=== PATIENT | female | born 1980 | race Asian ===

== ENCOUNTER → 2024-01-18 12:26 | Outpatient (CLI) | payer OTHER, SELFPAY ==
--- NOTE | 2024-01-18 12:27 | DI.US.S_ITS ---
PROCEDURE: US PERIPH VENOUS LOW EXTREM BI INDICATIONS: Localized edema TECHNIQUE: Real-time imaging, as well as color and pulse Doppler interrogation, were performed of the deep veins of both legs from the inguinal ligament to the popliteal fossa, with documentation of the visualized calf veins. COMPARISON: None. FINDINGS: Right: The common femoral, femoral, popliteal, and the visualized calf veins are normally compressible, and free of intraluminal thrombus. Color and pulse Doppler demonstrate normal phasic intravascular flow. There is normal augmentation response to distal compression maneuver. Left: The common femoral, femoral, popliteal, and the visualized calf veins are normally compressible, and free of intraluminal thrombus. Color and pulse Doppler demonstrate normal phasic intravascular flow. There is normal augmentation response to distal compression maneuver. IMPRESSION: No findings of deep venous thrombosis in either lower extremity. Dictated by: Blake Mcpherson M.D. on 01/18/2024 at 12:41 Approved by: Blake Mcpherson M.D. on 01/18/2024 at 12:41
== END ==
DX: R60.0 Localized edema (principal)
CPT/HCPCS: 93970

== ENCOUNTER 2024-04-13 09:45 | Outpatient (RCR) | payer OTHER, SELFPAY ==
--- NOTE | 2024-03-30 13:14 | PT.OIE ---
Current Diagnoses Segmental and somatic dysfunction of pelvic region (03/30/24) Pelvic muscle wasting (03/30/24) Unspecified urinary incontinence (03/30/24) Nocturia (03/30/24) Visit Care Team Role Provider Type Amarjit POOL Provider Primary Care Provider Non-Staff Specialty: Medical Address: Phone: Email: Majo Carter DO Attending Provider Non-Staff Referring Provider Specialty: Family Practice Address: [address] [place] [address], [id number] Email: Physical Therapy Initial Evaluation PT-OP-A Visit Information Start: 03/30/24 08:43 Freq: Status: Active Protocol: Document 03/30/24 09:06 [facility] (Rec: 03/30/24 09:32 [facility] [id number]) Out-Patient Physical Therapy Visit Information Visit Information Visit Type Initial Evaluation Visit Start Time 09:06 Visit Stop Time 09:45 Visit Number 1 Evaluation Information Evaluation Date 03/30/24 PT-OP-B Current Condition Start: 03/30/24 08:43 Freq: Status: Active Protocol: Document 03/30/24 09:06 [facility] (Rec: 03/30/24 09:32 [facility] [id number]) Current Condition History of Current Condition Onset Date a couple of years Current Complaints Kishore reports pelvic weakness and urianry incontinence History of Current Condition pt notes she feels leaking with laughing and coughing and with lifting, and jumping. She wakes up at night up to 4 times per night. She can delay the urge to void 7-10 min during the day. Kishore drinks primary water and low caffiene tea during the day. History of low back pain that started 2-3 years ago. Its low in her sacrum and she has had injections. 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 Treatment Goals Patient/Caregiver Goals Pt's goals include improving strength of the pelvic floor and reducing complaints of urinary incontinence PT-OP-C Subjective Start: 03/30/24 08:43 Freq: Status: Active Protocol: Document 03/30/24 12:41 [facility] (Rec: 03/30/24 12:42 [facility] [id number]) Patient Questionnaires Pelvic Pain and Urgency/Frequency Patient Symptom Scale Pelvic Pain Score 13 PT-OP-I Pelvic Floor Start: 03/30/24 08:43 Freq: Status: Active Protocol: Document 03/30/24 09:35 [facility] (Rec: 03/30/24 09:50 [facility] [id number]) Pelvic Floor Assessment Urine Pelvic Floor Surgery No Nocturia 3-4 Pelvic Clock Pelvic Clock 12-3 Guarding,Tightness Pelvic Clock 3-6 Guarding,Tightness Pelvic Clock 6-9 Guarding,Tightness Pelvic Clock 9-12 Guarding,Tightness Pelvic Clock Other guarding and tightness in the pelvic floor with decreased ability to contract the musculature Contraction Ability Voluntary Contraction Weak Voluntary Relaxation Weak Manual Muscle Testing Left 1 Manual Muscle Testing Right 1 Manual Muscle Testing Anterior 1 Manual Muscle Testing Posterior 1 Muscle Endurance (Seconds) 2 Comments Pelvic Floor Comments Kishore presents with guarding of the pelvic floor with decreased ability to faciliate a pelvic floor contraction and limited endurance of pelvic floor contraction. PT-OP-Q Treatments Start: 03/30/24 08:43 Freq: Status: Active Protocol: Document 03/30/24 09:32 [facility] (Rec: 03/30/24 09:33 [facility] [id number]) Therapeutic Exercises Supine Exercises pelvic floor quick flicks Reps/Minutes 10 reps holding 2 sec and resting 2 sec pelvic floor long holds Reps/Minutes 10 reps holding 10 seconds and rest 10 seconds p flexor stretch Supine Exercise Name hip flexor stretch Side bilateral Reps/Minutes hold 1-2 minutes Comments right sided tightness piriformis stretch Side bilateral Reps/Minutes hold 1-2 min Comments right sided tightness PT-OP-T Assessment and Plan Start: 03/30/24 08:43 Freq: Status: Active Protocol: Document 03/30/24 12:45 [facility] (Rec: 03/30/24 13:07 [facility] [id number]) Physical Therapy Assessment Rehab Potential Rehabilitation Potential Excellent Evaluation Complexity Number of Personal Factors/Comorbidities 0 Number of Body Systems Impaired 1-2 Clinical Presentation at Evaluation Stable Impairments Impairments Activity Tolerance,Soft Tissue Mobility,Strength,Tone Other Impairments urinary stress and urge incontinence symptoms Goals 3 Impairment Pelvic floor weakness and decreasead endurance Short Term Goal (STG) Kishore is able to improve endurance of her pelvic floor to 10 second hold time in supine STG Duration 5 weeks Charge Operator Goal (LTG) Kishore is able to sustain a pelvic floor contraction in standing x 5 seconds LTG Duration 12 weeks 2 Impairment Pelvic floor guarding and tension throughout all khalil of the levator ani Short Term Goal (STG) Kishore is given stretches to begin working towards full relaxation of the pelvic floor musculature at rest and for improved ability to void STG Duration 4 weeks Charge Operator Goal (LTG) Kishore is able to relax her pelvic floor to baseline with EMG biofeedback demonstrating improved ability to relax her pelvic floor at rest. 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 She has no prior hisotyr of vaginal delivery or any abdominal surgery. She does have a history of low back and sacral pain. Leakage is occuring approximately 2 times per week and Kishore will note leaking through her underwear. Exercise, lifting, laughing, and jumping increases her symptoms. Kishore also reports symptoms of nocturia waking 3- 4 times per night to void. Kishore reports she often strains to fully pass urine and bowel movements and at times will still feel her bladder is full after urinating. She has a slow and hesitant urinary stream. With pelvic floor exam today Kishore presents with pelvic floor guarding and tension for all khalil of the levator ani. She is unable to relax with verbal cues. Pelvic floor contraction is very minimal with a 1/5 trace contraction MMT for all khalil of the pelvic floor. Endurance is poor with 1-2 seconds only. Kishore also presents with hip tightness on the right side both in the piriformis and hip flexors which can contribute to pelvic floor tension. I explained to Kishore today how tension in the pelvic floor con contribute to not being able to fully empty the bladder. Kishore is a good candidate for PT working towards both relaxed awareness of the pelvic floor at rest as well as the ability to contract the pelvic floor and sustain a pelvic floor contraction. Physical Therapy Plan Frequency and Duration Frequency of Treatment 1x/Week Duration of treatment (weeks) 12 Plan of Care Start Date 03/30/24 Plan of Care End Date 06/22/24 Therapeutic Interventions Therapeutic Interventions Home Exercise Program, Neuromuscular Re-education, Patient/Caregiver Education, Self-Care/Home Management, Therapeutic Exercises Modalities Biofeedback Next Visit Focus/Plan Next Note Type Treatment Note Next Visit Plan begin stretches for the pelvic floor and initiate EMG biofeedback for pelvic floor strength and endurance training
--- NOTE | 2024-04-06 12:47 | PT.OTN ---
Current Diagnoses Segmental and somatic dysfunction of pelvic region (04/06/24) Pelvic muscle wasting (04/06/24) Unspecified urinary incontinence (04/06/24) Nocturia (04/06/24) Physical Therapy Treatment Note PT-OP-A Visit Information Start: 03/30/24 08:43 Freq: Status: Active Protocol: Document 04/06/24 09:55 [facility] (Rec: 04/06/24 11:31 [facility] [id number]) Out-Patient Physical Therapy Visit Information Visit Information Visit Type Treatment Note Visit Start Time 09:50 Visit Stop Time 10:30 Visit Number 2 PT-OP-B Current Condition Start: 03/30/24 08:43 Freq: Status: Active Protocol: Document 03/30/24 09:06 [facility] (Rec: 03/30/24 09:32 [facility] [id number]) Current Condition History of Current Condition Onset Date a couple of years Current Complaints Kishore reports pelvic weakness and urianry incontinence History of Current Condition pt notes she feels leaking with laughing and coughing and with lifting, and jumping. She wakes up at night up to 4 times per night. She can delay the urge to void 7-10 min during the day. Kishore drinks primary water and low caffiene tea during the day. History of low back pain that started 2-3 years ago. Its low in her sacrum and she has had injections. 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 Treatment Goals Patient/Caregiver Goals Pt's goals include improving strength of the pelvic floor and reducing complaints of urinary incontinence PT-OP-C Subjective Start: 03/30/24 08:43 Freq: Status: Active Protocol: Document 04/06/24 09:55 [facility] (Rec: 04/06/24 11:31 [facility] [id number]) OP-PT Subjective Patient Comments Patient Comments She is trying to relax to void instead of pushing PT-OP-I Pelvic Floor Start: 03/30/24 08:43 Freq: Status: Active Protocol: Document 03/30/24 09:35 [facility] (Rec: 03/30/24 09:50 [facility] [id number]) Pelvic Floor Assessment Urine Pelvic Floor Surgery No Nocturia 3-4 Pelvic Clock Pelvic Clock 12-3 Guarding,Tightness Pelvic Clock 3-6 Guarding,Tightness Pelvic Clock 6-9 Guarding,Tightness Pelvic Clock 9-12 Guarding,Tightness Pelvic Clock Other guarding and tightness in the pelvic floor with decreased ability to contract the musculature Contraction Ability Voluntary Contraction Weak Voluntary Relaxation Weak Manual Muscle Testing Left 1 Manual Muscle Testing Right 1 Manual Muscle Testing Anterior 1 Manual Muscle Testing Posterior 1 Muscle Endurance (Seconds) 2 Comments Pelvic Floor Comments Kishore presents with guarding of the pelvic floor with decreased ability to faciliate a pelvic floor contraction and limited endurance of pelvic floor contraction. PT-OP-Q Treatments Start: 03/30/24 08:43 Freq: Status: Active Protocol: Document 04/06/24 09:55 [facility] (Rec: 04/06/24 11:31 [facility] [id number]) Therapeutic Exercises Supine Exercises ball squeeze with pelvic floor contraction Reps/Minutes x 10 reps Comments avearage of 15 and max of 27 pelvic floor long holds Supine Exercise Name rectal sensor elevated 5 uv Reps/Minutes x 10 reps Comments average 12.1 adn max of 20 uv p flexor stretch Supine Exercise Name hip flexor stretch Side bilateral Reps/Minutes hold 1-2 minutes Comments right sided tightness piriformis stretch Side bilateral Reps/Minutes hold 1-2 min Comments right sided tightness PT-OP-T Assessment and Plan Start: 03/30/24 08:43 Freq: Status: Active Protocol: Document 04/06/24 09:55 [facility] (Rec: 04/06/24 11:31 [facility] [id number]) Physical Therapy Assessment Goals 3 Impairment Pelvic floor weakness and decreasead endurance Short Term Goal (STG) Kishore is able to improve endurance of her pelvic floor to 10 second hold time in supine STG Duration 5 weeks Asphalt Coater Goal (LTG) Kishore is able to sustain a pelvic floor contraction in standing x 5 seconds LTG Duration 12 weeks 2 Impairment Pelvic floor guarding and tension throughout all khalil of the levator ani Short Term Goal (STG) Kishore is given stretches to begin working towards full relaxation of the pelvic floor musculature at rest and for improved ability to void STG Duration 4 weeks Detention Goal (LTG) Kishore is able to relax her pelvic floor to baseline with EMG biofeedback demonstrating improved ability to relax her pelvic floor at rest. LTG Duration 12 weeks 1 Impairment Urinary stress and urge incontinence symptoms with leakage 2 times per week wetting through her underwear Short Term Goal (STG) Kishore is educated on a pelvic floor strengtheing program to help decrease urinary leakage STG Duration 4 weeks Detention Goal (LTG) Kishore reports a overall reduction of urinary leagage and is no longer wetting through her underwear LTG Duration 12 weeks Assessment Summary Assessment EMG biofeedback for pelvic floor was initiated today and Kishore was unable to use the vaginal sensor due to pain. the rectal sensor was used vaginally instead. The resting tone was still elevated at 5.0 even with the rectal sensor. She was able to relax to 3 following her pelvic floor contract relax and hip exercises and biofeedback was helpful to Kishore to be able to see that her pelvic floor is guarded. Start with stretches next visit Physical Therapy Plan Frequency and Duration Frequency of Treatment 1x/Week Duration of treatment (weeks) 12 Plan of Care Start Date 03/30/24 Plan of Care End Date 06/22/24 Therapeutic Interventions Therapeutic Interventions Home Exercise Program, Neuromuscular Re-education, Patient/Caregiver Education, Self-Care/Home Management, Therapeutic Exercises Modalities Biofeedback Next Visit Focus/Plan Next Note Type Treatment Note Next Visit Plan start with stretches next visit then continue with biofeedback. Trial of vaginal sensor and if its still painful continue with rectal sensor.
--- NOTE | 2024-04-13 12:45 | PT.OTN ---
Current Diagnoses Segmental and somatic dysfunction of pelvic region (04/13/24) Pelvic muscle wasting (04/13/24) Unspecified urinary incontinence (04/13/24) Nocturia (04/13/24) Physical Therapy Treatment Note PT-OP-A Visit Information Start: 03/30/24 08:43 Freq: Status: Active Protocol: Document 04/13/24 09:50 [facility] (Rec: 04/13/24 10:45 [facility] [id number]) Out-Patient Physical Therapy Visit Information Visit Information Visit Type Treatment Note Visit Start Time 09:50 Visit Stop Time 10:20 Visit Number 3 PT-OP-B Current Condition Start: 03/30/24 08:43 Freq: Status: Active Protocol: Document 03/30/24 09:06 [facility] (Rec: 03/30/24 09:32 [facility] [id number]) Current Condition History of Current Condition Onset Date a couple of years Current Complaints Kishore reports pelvic weakness and urianry incontinence History of Current Condition pt notes she feels leaking with laughing and coughing and with lifting, and jumping. She wakes up at night up to 4 times per night. She can delay the urge to void 7-10 min during the day. Kishore drinks primary water and low caffiene tea during the day. History of low back pain that started 2-3 years ago. Its low in her sacrum and she has had injections. 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 Treatment Goals Patient/Caregiver Goals Pt's goals include improving strength of the pelvic floor and reducing complaints of urinary incontinence PT-OP-C Subjective Start: 03/30/24 08:43 Freq: Status: Active Protocol: Document 04/13/24 09:45 [facility] (Rec: 04/13/24 12:45 [facility] [id number]) OP-PT Subjective Patient Comments Patient Comments Kishore reports she feels that her bladder is still full after emptying PT-OP-I Pelvic Floor Start: 03/30/24 08:43 Freq: Status: Active Protocol: Document 03/30/24 09:35 [facility] (Rec: 03/30/24 09:50 [facility] [id number]) Pelvic Floor Assessment Urine Pelvic Floor Surgery No Nocturia 3-4 Pelvic Clock Pelvic Clock 12-3 Guarding,Tightness Pelvic Clock 3-6 Guarding,Tightness Pelvic Clock 6-9 Guarding,Tightness Pelvic Clock 9-12 Guarding,Tightness Pelvic Clock Other guarding and tightness in the pelvic floor with decreased ability to contract the musculature Contraction Ability Voluntary Contraction Weak Voluntary Relaxation Weak Manual Muscle Testing Left 1 Manual Muscle Testing Right 1 Manual Muscle Testing Anterior 1 Manual Muscle Testing Posterior 1 Muscle Endurance (Seconds) 2 Comments Pelvic Floor Comments Kishore presents with guarding of the pelvic floor with decreased ability to faciliate a pelvic floor contraction and limited endurance of pelvic floor contraction. PT-OP-Q Treatments Start: 03/30/24 08:43 Freq: Status: Active Protocol: Document 04/13/24 09:50 [facility] (Rec: 04/13/24 10:45 [facility] [id number]) Therapeutic Exercises Supine Exercises modified squat stretch Reps/Minutes hold 1-2 min pelvic floor long holds Supine Exercise Name rectal sensor elevated 5 uv Comments average 13. and max 20.1 uv Prone Exercises cobra stretch Reps/Minutes hold 1-2 min Other Exercises redd pose Reps/Minutes l-2 min cat cow Reps/Minutes 10 reps PT-OP-T Assessment and Plan Start: 03/30/24 08:43 Freq: Status: Active Protocol: Document 04/13/24 09:45 [facility] (Rec: 04/13/24 12:45 [facility] [id number]) Physical Therapy Assessment Goals 3 Impairment Pelvic floor weakness and decreasead endurance Short Term Goal (STG) Kishore is able to improve endurance of her pelvic floor to 10 second hold time in supine STG Duration 5 weeks Shelter Goal (LTG) Kishore is able to sustain a pelvic floor contraction in standing x 5 seconds LTG Duration 12 weeks 2 Impairment Pelvic floor guarding and tension throughout all khalil of the levator ani Short Term Goal (STG) Kishore is given stretches to begin working towards full relaxation of the pelvic floor musculature at rest and for improved ability to void STG Duration 4 weeks Manager Of Sales Goal (LTG) Kishore is able to relax her pelvic floor to baseline with EMG biofeedback demonstrating improved ability to relax her pelvic floor at rest. LTG Duration 12 weeks 1 Impairment Urinary stress and urge incontinence symptoms with leakage 2 times per week wetting through her underwear Short Term Goal (STG) Kishore is educated on a pelvic floor strengthening program to help decrease urinary leakage STG Duration 4 weeks Manager Of Sales Goal (LTG) Kishore reports a overall reduction of urinary leakage and is no longer wetting through her underwear LTG Duration 12 weeks Assessment Summary Assessment I added pelvic stretches in for Kishore today and she was given a size small dilator for home to begin working on stretching her pelvic floor. I also started fascial release around the bladder and she tolerated this well. Resting tone was slightly improved at rest today and endurance is slowly improving Physical Therapy Plan Frequency and Duration Frequency of Treatment 1x/Week Duration of treatment (weeks) 12 Plan of Care Start Date 03/30/24 Plan of Care End Date 06/22/24 Therapeutic Interventions Therapeutic Interventions Home Exercise Program, Neuromuscular Re-education, Patient/Caregiver Education, Self-Care/Home Management, Therapeutic Exercises Modalities Biofeedback Next Visit Focus/Plan Next Note Type Treatment Note Next Visit Plan continue with fascial work, see how Kishore did with the dilator at home, consider MFR of the pelvic floor
--- NOTE | 2024-07-07 08:25 | PT.OPDS ---
Current Diagnoses Segmental and somatic dysfunction of pelvic region (04/13/24) Pelvic muscle wasting (04/13/24) Unspecified urinary incontinence (04/13/24) Nocturia (04/13/24) Visit Care Team Role Provider Type Amarjit POOL Provider Primary Care Provider Non-Staff Specialty: Medical Address: Phone: Email: Majo Carter DO Attending Provider Non-Staff Referring Provider Specialty: Family Practice Address: [address] [place] [address], [id number] Email: Visit Number Visit Number 3 Discharge Summary PT-OP-B Current Condition Start: 03/30/24 08:43 Freq: Status: Active Protocol: Document 03/30/24 09:06 [facility] (Rec: 03/30/24 09:32 [facility] [id number]) Current Condition History of Current Condition Onset Date a couple of years Current Complaints Kishore reports pelvic weakness and urianry incontinence History of Current Condition pt notes she feels leaking with laughing and coughing and with lifting, and jumping. She wakes up at night up to 4 times per night. She can delay the urge to void 7-10 min during the day. Kishore drinks primary water and low caffiene tea during the day. History of low back pain that started 2-3 years ago. Its low in her sacrum and she has had injections. 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 Treatment Goals Patient/Caregiver Goals Pt's goals include improving strength of the pelvic floor and reducing complaints of urinary incontinence PT-OP-C Subjective Start: 03/30/24 08:43 Freq: Status: Active Protocol: Document 04/13/24 09:45 [facility] (Rec: 04/13/24 12:45 [facility] [id number]) OP-PT Subjective Patient Comments Patient Comments Kishore reports she feels that her bladder is still full after emptying PT-OP-I Pelvic Floor Start: 03/30/24 08:43 Freq: Status: Active Protocol: Document 03/30/24 09:35 [facility] (Rec: 03/30/24 09:50 [facility] [id number]) Pelvic Floor Assessment Urine Pelvic Floor Surgery No Nocturia 3-4 Pelvic Clock Pelvic Clock 12-3 Guarding,Tightness Pelvic Clock 3-6 Guarding,Tightness Pelvic Clock 6-9 Guarding,Tightness Pelvic Clock 9-12 Guarding,Tightness Pelvic Clock Other guarding and tightness in the pelvic floor with decreased ability to contract the musculature Contraction Ability Voluntary Contraction Weak Voluntary Relaxation Weak Manual Muscle Testing Left 1 Manual Muscle Testing Right 1 Manual Muscle Testing Anterior 1 Manual Muscle Testing Posterior 1 Muscle Endurance (Seconds) 2 Comments Pelvic Floor Comments Kishore presents with guarding of the pelvic floor with decreased ability to faciliate a pelvic floor contraction and limited endurance of pelvic floor contraction. PT-OP-T Assessment and Plan Start: 03/30/24 08:43 Freq: Status: Active Protocol: Document 07/07/24 08:23 [facility] (Rec: 07/07/24 08:25 [facility] [id number]) Physical Therapy Assessment Assessment Summary Assessment Kishore has not been seen since April 13. She was given a home program at the time of her last visit and was given a size small dilator for home to work on stretches. At this time she will be discharged from PT to a [facility] as her plan of care is at this time. Physical Therapy Plan Discharge Physical Therapy Discharge Reasons No Longer Attending PT
== END 2024-07-11 14:43 | disposition home or self-care (01) ==
LOC: PHYS 09:45
PROVIDERS: Referring Provider Student in an Organized Health Care Education/Training Program; Visit Provider Student in an Organized Health Care Education/Training Program
DX: R32 Unspecified urinary incontinence (principal); N81.84 Pelvic muscle wasting; R35.1 Nocturia; M99.05 Segmental and somatic dysfunction of pelvic region
CPT/HCPCS: 97110; 97140